=== PATIENT | male | born 2000 | race Caucasian/White ===

== ENCOUNTER 2018-10-15 19:23 | Emergency (ER) | payer MEDICAID ==
[~2018-10-15] VITALS: Ht 182.9 cm; Wt 95.7 kg
--- NOTE | 2018-10-15 19:40 | NUR ---
Patient to ER bed 02 to gown for evaluation. Side rails up.
[2018-10-15 19:41] VITALS: BP_SYST 125
--- NOTE | 2018-10-15 21:00 | NUR ---
Dr. Hughes bedside for Pt eval
[2018-10-15] MEDS ORDERED: NACL 0.9% 1,000 ML IV ONE (21:06)
--- NOTE | 2018-10-15 21:10 | NUR ---
Pt BIB family to ED C/O intermittent, chest pain for several months. Pt reports he was seen by his PMD today and EKG showed irregularly irregular cardiac rhythm, Pt was advised to come to the ED. Pt reports having associated shortness of breath, worse when walking short distances. Pt reports becoming easily fatigued. No other complaints and or injuries noted. VSS no s/s of acute distress. Resting on gurney rails up
[2018-10-15 21:37] LABS: BASOPHILS # (AUTO) 0.1 K/uL (0.0-0.2); EOSINOPHILS # (AUTO) 0.2 K/uL (0.0-0.4); HEMATOCRIT 45.9 % (36-54); HEMOGLOBIN 15.4 g/dL (14.0-18.0); LYMPHOCYTES # (AUTO) 2.5 K/uL (1.0-5.5); MEAN CORPUSCULAR HEMOGLOBIN 27 pg (27-31); MEAN CORPUSCULAR HGB CONC 34 % (32-36); MEAN CORPUSCULAR VOLUME 81 fL (79.0-98.0); MONOCYTES # (AUTO) 0.8 K/uL (0.0-1.0); MONOCYTES % (AUTO) 9.8 % (1.7-9.3); NEUTROPHILS # (AUTO) 4.2 K/uL (1.8-7.7); NEUTROPHILS % (AUTO) 54.2 % (40.0-70.0); PLATELET COUNT (AUTO) 324 K/uL (130-430); RED BLOOD CELL COUNT(AUTO) 5.65 MIL/uL (4.2-6.2); RED CELL DISTRIBUTION WIDTH 13.1 % (9.0-15.0); WHITE BLOOD COUNT (AUTO) 7.7 K/uL (4.5-11.0)
--- NOTE | 2018-10-15 22:05 | NUR ---
VSS no s/s of acute distress. Resting on gurney with rails up
[2018-10-15 22:34] LABS: ALANINE AMINOTRANSFERASE 33 U/L (12-78); ALBUMIN 4.2 g/dL (3.4-4.8); ASPARTATE AMINOTRANSFERASE 23 U/L (10-37); CALCIUM 9.8 mg/dL (8.4-11.0); CHLORIDE 104 mmol/L (98-107); CREATININE 0.79 mg/dL (0.55-1.30); GLUCOSE 93 mg/dL (70-99); POTASSIUM 3.5 mmol/L (3.5-5.1); SODIUM SERUM 144 mmol/L (136-145); TOTAL BILIRUBIN 0.2 mg/dL (0.0-1.0); UREA NITROGEN, BLOOD 9 mg/dL (8-21)
[2018-10-15 22:40] LABS: GFR AFRICAN AMERICAN 161 mL/min (>90)
[2018-10-15 22:42] LABS: ANION GAP 14 (5-15)
--- NOTE | 2018-10-15 23:18 | NUR ---
Dr. Hughes bedside to update Pt
--- NOTE | 2018-10-15 23:31 | NUR ---
Patient given written and verbal discharge instructions and verbalizes understanding. ER MD discussed with patient the results and treatment provided. Patient in stable condition. ID arm band removed. IV catheter removed intact and dressing applied, no active bleeding. Rx of MOTRIN given. Patient educated on pain management and to follow up with PMD. Pain Scale 0/10. Opportunity for questions provided and answered. Medication side effect fact sheet provided.
[2018-10-15 23:32] VITALS: BP_SYST 123
== END 2018-10-15 23:32 | disposition home or self-care (01) ==
LOC: SED 19:23
DX: R00.2 Palpitations (principal); R07.9 Chest pain, unspecified; R06.02 Shortness of breath; R53.83 Other fatigue
CPT/HCPCS: 36415; 70450-TC; 71045; 80053; 83880; 84484; 85025; 99284